=== PATIENT | male | born 1995 | race Caucasian/White ===

== ENCOUNTER 2022-08-25 11:48 | Emergency (ER) | payer BC ==
[2022-08-25] MEDS ORDERED: Fluorescein 1 MG Ophth Strip EYELF ONE (12:38)
[2022-08-25] MEDS ORDERED: Proparacaine 0.5% Ophth Soln 15 ML Bottle EYELF ONE (12:40)
[2022-08-25] MEDS ORDERED: Erythromycin Base 0.5% Ophth Oint 1 GM Tube EYELF ONE (13:30)
== END 2022-08-25 13:44 | disposition home or self-care (01) ==
LOC: JD.ED 11:48
DX: H18.822 Corneal disorder due to contact lens, left eye (principal); K21.9 Gastro-esophageal reflux disease without esophagitis; Z79.899 Other long term (current) drug therapy
CPT/HCPCS: 99282; A9270; J3490